=== PATIENT | female | born 1995 | race Caucasian/White ===

== ENCOUNTER 2017-01-01 14:08 | Emergency (ER) | payer MEDICAID ==
[2017-01-01 14:30] VITALS: BP 120/62
[2017-01-01] MEDS ORDERED: methylPREDNISolone Sodium Succinate 125 MG/2 ML SDV IM ONE (14:51)
--- NOTE | 2017-01-01 14:59 | EDM.PDOC ---
ED HPI GENERAL MEDICAL PROBLEM - General Chief Complaint: Respiratory Problem Stated Complaint: ASTHMA ATTACK Time Seen by Provider: 01/01/17 14:35 Source of Information: Reports: Patient History Limitations: Reports: No Limitations - History of Present Illness INITIAL COMMENTS - FREE TEXT/NARRATIVE: 21-year-old female with long-standing asthma is living in a home right now with 4 dogs and is been having increased difficulty with her asthma. She's been using her albuterol as well as her nebulizers. She still feels tightness in her chest and is having difficulty breathing but is not distressed. No fevers or chills. No rash. Onset: Gradual (Over the last several days) Severity: Moderate Associated Symptoms: Reports: No Other Symptoms - Related Data Allergies Allergy/AdvReac Type Severity Reaction Status Date / Time iodine Allergy Anaphylactic Verified 01/01/17 14:20 Shock Home Meds: Home Meds Montelukast Sodium [Singulair] 1 tab IH DAILY 08/16/14 [History] Albuterol Sulfate 1 ampule NEB Q4HR PRN 01/01/17 [History] Albuterol [Ventolin HFA] 2 inh INH Q2H PRN 01/01/17 [History] Past Medical History HEENT History: Reports: Glaucoma, Impaired Vision Respiratory History: Reports: Asthma, Pneumonia, Recurrent Psychiatric History: Reports: Anxiety Dermatologic History: Reports: Eczema - Infectious Disease History Infectious Disease History: Reports: Chicken Pox Social & Family History - Tobacco Use Smoking Status *Q: Current Every Day Smoker Years of Tobacco use: 3 Packs/Tins Daily: 0.5 Second Hand Smoke Exposure: No - Caffeine Use Caffeine Use: Reports: Soda - Recreational Drug Use Recreational Drug Use: No ED ROS GENERAL - Review of Systems Review Of Systems: See Below Constitutional: Denies: Fever, Chills, Malaise Respiratory: Reports: Shortness of Breath, Cough. Denies: Sputum Cardiovascular: Denies: Chest Pain GI/Abdominal: Denies: Abdominal Pain, Nausea, Vomiting Skin: Reports: No Symptoms Neurological: Reports: No Symptoms Psychiatric: Reports: No Symptoms ED EXAM, GENERAL - Physical Exam Exam: See Below Exam Limited By: No Limitations General Appearance: Alert, No Apparent Distress Eye Exam: Bilateral Eye: Normal Inspection Throat/Mouth: Normal Inspection Head: Atraumatic Respiratory/Chest: No Respiratory Distress, Wheezing (Diffuse expiratory and inspiratory wheezes are heard but good underlying air movement. O2 saturations are 97% respirations 16.) Psychiatric: Normal Affect, Normal Mood Skin Exam: Warm, Dry Course - Vital Signs Last Recorded V/S: Last Vital Signs Temp 97.8 F 01/01/17 14:37 Pulse 81 01/01/17 14:37 Resp 16 01/01/17 14:37 BP 120/62 01/01/17 14:37 Pulse Ox 97 01/01/17 14:37 - Orders/Labs/Meds Meds: Medications Discontinued Medications Generic Name Dose Route Start Last Admin Trade Name Christopher PRN Reason Stop Dose Admin Methylprednisolone Sodium Succinate 125 mg 01/01/17 14:51 01/01/17 14:57 Solu-Medrol IM 01/01/17 14:52 125 mg ONETIME ONE Administration - Re-Assessments/Exams Free Text/Narrative Re-Assessment/Exam: 01/01/17 14:57 Patient was given 125 mg of Solu-Medrol IM. Encouraged to continue her nebulizers and asthma medications as prescribed, and also placed on 60 mg of prednisone daily for the next 5 days with food. She will return if worsening despite treatment. I wonder her symptoms will only partially resolve and will return if she doesn't get away from the animals that are likely provoking her asthma. Departure - Departure Time of Disposition: 15:10 Disposition: Home, Self-Care 01 Condition: Good Clinical Impression: Asthma with exacerbation Qualifiers: Asthma severity: moderate persistent Qualified Code(s): J45.41 - Moderate persistent asthma with (acute) exacerbation - Discharge Information Instructions: Asthma, Adult Referrals: Jennifer Todd NP [Primary Care Provider] - Forms: ED Department Discharge Care Plan Goals: Take 6 pills are prednisone with food daily for the next 5 days starting with your evening meal tonight. The rest of the dosages should be taken with your first meal in the morning. Continue with your other asthma medications, and return if worsening despite treatment.
== END 2017-01-01 15:09 | disposition home or self-care (01) ==
LOC: JP.ED 14:08
DX: J45.41 Moderate persistent asthma with (acute) exacerbation (principal); F17.210 Nicotine dependence, cigarettes, uncomplicated; Z87.01 Personal history of pneumonia (recurrent); Z79.899 Other long term (current) drug therapy; Z91.09 Other allergy status, other than to drugs and biological substances
CPT/HCPCS: 96372; 99285; J2930

== ENCOUNTER 2017-04-23 18:08 | Emergency (ER) | payer MEDICAID ==
[2017-04-23] MEDS ORDERED: Albuterol 0.083% 2.5 MG/3 ML Neb Soln NEB ONE (18:28)
[2017-04-23] MEDS ORDERED: predniSONE 20 MG Tab PO ONE (18:28)
--- NOTE | 2017-04-23 18:34 | EDM.PDOC ---
ED HPI GENERAL MEDICAL PROBLEM - General Chief Complaint: Respiratory Problem Stated Complaint: ASTHMA ATTACK Time Seen by Provider: 04/23/17 18:20 Source of Information: Reports: Patient, RN History Limitations: Reports: No Limitations - History of Present Illness INITIAL COMMENTS - FREE TEXT/NARRATIVE: 21 yo female with a pHx of asthma presents with wheezing for a few days. Has both albuterol via nebs and an MDI but is out of both. Has an appt pending with her provider, but this provider won't refill her meds until she is seen. Quit smoking about 2 mos ago. No fevers. SOB with exertion. Onset: Gradual Duration: Day(s):, Getting Worse Location: Reports: Chest Quality: Reports: Other (mild tightness) Severity: Moderate Improves with: Reports: Rest Worsens with: Reports: Movement (exertion) Context: Reports: Other (Hx of asthma) Associated Symptoms: Reports: Cough, Shortness of Breath. Denies: Fever/Chills , Nausea/Vomiting Treatments [employer]: Reports: Other (see below) (out of all her asthma meds) - Related Data Allergies Allergy/AdvReac Type Severity Reaction Status Date / Time iodine Allergy Anaphylactic Verified 01/01/17 14:20 Shock Home Meds: Home Meds Montelukast Sodium [Singulair] 1 tab IH DAILY 08/16/14 [History] Albuterol Sulfate 1 ampule NEB Q4HR PRN 01/01/17 [History] Albuterol [Ventolin HFA] 2 inh INH Q2H PRN 01/01/17 [History] Past Medical History HEENT History: Reports: Glaucoma, Impaired Vision Respiratory History: Reports: Asthma, Pneumonia, Recurrent Psychiatric History: Reports: Anxiety Dermatologic History: Reports: Eczema - Infectious Disease History Infectious Disease History: Reports: Chicken Pox Social & Family History - Tobacco Use Smoking Status *Q: Former Smoker Years of Tobacco use: 3 Packs/Tins Daily: 0.5 Used Tobacco, but Quit: Yes Month Tobacco Last Used: february Second Hand Smoke Exposure: No - Caffeine Use Caffeine Use: Reports: Soda - Recreational Drug Use Recreational Drug Use: No ED ROS GENERAL - Review of Systems Review Of Systems: See Below Constitutional: Reports: No Symptoms HEENT: Reports: No Symptoms Respiratory: Reports: Shortness of Breath, Wheezing, Cough. Denies: Sputum, Hemoptysis Cardiovascular: Reports: No Symptoms Endocrine: Reports: No Symptoms GI/Abdominal: Reports: No Symptoms : Reports: No Symptoms Musculoskeletal: Reports: No Symptoms Skin: Reports: No Symptoms Neurological: Reports: No Symptoms Psychiatric: Reports: No Symptoms ED EXAM, GENERAL - Physical Exam Exam: See Below Exam Limited By: No Limitations General Appearance: Alert, WD/WN, No Apparent Distress Eye Exam: Bilateral Eye: Normal Inspection Ears: Normal External Exam, Normal Canal, Hearing Grossly Normal, Normal TMs Ear Exam: Bilateral Ear: Auricle Normal, Canal Normal, TM normal Nose: Normal Inspection, Normal Mucosa, No Blood Throat/Mouth: Normal Inspection, Normal Lips, Normal Teeth, Normal Oropharynx, Normal Voice, No Airway Compromise Head: Atraumatic, Normocephalic Neck: Normal Inspection, Supple Respiratory/Chest: No Respiratory Distress, No Accessory Muscle Use, Wheezing. No: Decreased Breath Sounds, Crackles, Rales, Rhonchi, Accessory Muscle Use, Retractions Cardiovascular: Regular Rate, Rhythm, No Edema GI/Abdominal: Normal Bowel Sounds, Soft, Non-Tender, No Distention Back Exam: Normal Inspection. No: CVA Tenderness (R), CVA Tenderness (L) Extremities: Normal Inspection, Normal Range of Motion, Non-Tender, No Pedal Edema Neurological: Alert, Oriented, CN II-XII Intact, Normal Cognition, No Motor/ Sensory Deficits Psychiatric: Normal Affect, Normal Mood Skin Exam: Warm, Dry, Intact, Normal Color, No Rash Lymphatic: No Adenopathy Course - Vital Signs Text/Narrative:: Nearly wheeze-free after her albuterol. Last Recorded V/S: Last Vital Signs Temp 36.4 C 04/23/17 18:14 Pulse 110 H 04/23/17 18:14 Resp 24 H 04/23/17 18:14 BP 138/71 04/23/17 18:14 Pulse Ox 97 04/23/17 18:14 - Orders/Labs/Meds Orders: Active Orders 24 hr Category Date Time Status RT Aerosol Therapy [RC] ASDIRECTED Care 04/23/17 18:28 Active Meds: Medications Discontinued Medications Generic Name Dose Route Start Last Admin Trade Name Freq PRN Reason Stop Dose Admin Albuterol 2.5 mg 04/23/17 18:28 04/23/17 18:36 Proventil Neb Soln NEB 12/16/17 18:29 2.5 mg ONETIME ONE Administration Prednisone 40 mg 04/23/17 18:28 04/23/17 18:34 Prednisone PO 04/23/17 18:29 40 mg ONETIME ONE Administration Departure - Departure Time of Disposition: 18:47 Disposition: Home, Self-Care 01 Condition: Good Clinical Impression: Exacerbation of asthma Qualifiers: Asthma severity: moderate Asthma persistence: persistent Qualified Code(s): J45.41 - Moderate persistent asthma with (acute) exacerbation - Discharge Information Referrals: PCP,None [Primary Care Provider] - Forms: ED Department Discharge - My Orders Last 24 Hours: My Active Orders 04/23/17 18:28 RT Aerosol Therapy [RC] ASDIRECTED - Assessment/Plan Last 24 Hours: My Active Orders 04/23/17 18:28 RT Aerosol Therapy [RC] ASDIRECTED
[2017-04-23 18:59] VITALS: BP 137/74
== END 2017-04-23 18:59 | disposition home or self-care (01) ==
LOC: JP.ED 18:08
DX: J45.41 Moderate persistent asthma with (acute) exacerbation (principal); Z88.8 Allergy status to other drugs, medicaments and biological substances; Z87.891 Personal history of nicotine dependence
CPT/HCPCS: 94640; 99284; A9270